=== PATIENT | male | born 1990 | race Caucasian/White ===

== ENCOUNTER 2018-03-23 21:28 | Observation (INO) ==
[2018-03-23] MEDS ORDERED: Ondansetron 4 MG/2 ML VIAL IVP ONE (22:05)
[2018-03-23] MEDS ORDERED: 0.9 % Sodium Chloride 1,000 ML IVC ONE (22:05)
--- NOTE | 2018-03-23 22:14 | Emergency Department Note ---
Disposition Clinical Impression: Acute hepatitis Disposition: Admitted As Inpatient Condition: Fair Referrals: NONE,PCP [Primary Care Provider] - Forms: ED Satisfaction Letter, Work/School Release Time of Disposition: 23:31 General Adult HPI - General Chief complaint: ED General Medical Stated complaint: pnemonia symptoms increased Time Seen by Provider: 03/23/18 21:55 Source: patient, family Mode of arrival: private vehicle Limitations: no limitations Nursing Notes Reviewed: Yes Vital Signs Reviewed: Yes - History of Present Illness HPI Narrative: Patient presents to the emergency part stating that Saturday he was seen at an [facility] facility for cough and vomiting and not feeling well. He says they did not x-ray and told him that he had pneumonia and a partially collapsed lung. They sent him out on antibiotics and Mucinex. He did not get the medications filled because he said he did not have the money to do it. He has continued to have vomiting and inability to eat and he still feels a little short of breath and is coughing. He rates his symptoms as severe. He notes no symptoms get worse with eating or drinking. He notes no alleviating factors. He has had no associated fever and no associated diarrhea at this point. He does complain of dark urine. Pt Subjective Complaint: Worsening pneumonia, vomiting Pain Scale: 2 Treatments Prior to Arrival: other (Seen at outside facility.) - Related Data Allergies Allergy/AdvReac Type Severity Reaction Status Date / Time No Known Allergies Allergy Verified 03/10/18 00:34 All systems ED: reviewed and negative except as stated. Constitutional: Reports: fever, chills ENT ED: Denies: ear pain, throat pain, congestion Cardiovascular: Denies: chest pain, palpitations Respiratory: Reports: cough, dyspnea Gastrointestinal: Reports: abdominal pain, nausea, vomiting. Denies: diarrhea Genitourinary: Reports: dysuria, other (Dark colored urine) Integumentary: Denies: rash Neurological: Reports: weakness (Generalized) Past Medical History - Past Medical History Attestation: Yes The following information was validated with the patient. Source: patient, old records reviewed, obtained from family, nursing notes reviewed Medical history: Reports: diabetes, hypertension, other Psychiatric history: Reports: depression - Social History Smoking Status: Current every day smoker Smokeless Tobacco Status: No Alcohol use: Reports: rarely Drug use: Reports: none Physical Exam - General Limitations: no limitations General appearance: alert, in no apparent distress - Head Head exam: atraumatic, normocephalic, normal inspection - Eye Eye exam: Present: normal appearance, PERRL, EOMI. Absent: scleral icterus, conjunctival injection - ENT ENT exam: normal exam, normal oropharynx, mucous membranes moist, normal external ear exam - Neck Neck exam: Present: normal inspection, full ROM, trachea midline. Absent: meni ngismus - Chest Chest inspection: Present: normal inspection, symmetric chest wall rise. Absent: tenderness - Respiratory Respiratory exam: Present: normal lung sounds bilaterally. Absent: respiratory distress, wheezes - Cardiovascular Cardiovascular exam: Present: normal rhythm, tachycardia, normal heart sounds - Abdominal Exam Abdominal exam: Present: soft, Non-Tender, normal bowel sounds - Extremities Exam Extremities exam: Present: normal inspection. Absent: pedal edema - Neurological Exam Neurological exam: Present: alert, oriented X3 - Psychiatric Psychiatric exam: Present: normal affect, normal mood - Skin Skin exam: Present: warm, dry. Absent: rash Course Course Narrative: Patient presented with concern of worsening pneumonia. Symptoms include vomiting with some cough but sounds more like a vomiting issue without diarrhea. He is also talking about his urine being brown. I do not hear anything on his lungs and his vital signs are good and his oxygen level is good. I started to doubt the pneumonia story. I am going to repeat the chest x-ray to be sure. I however am going to do a hepatitis workup on the patient because of his story of dark brown urine and vomiting. He reports having a history of substance use in the past but has never been diagnosed with any type of hepatitis. He does not relate any recent dramatic intake of Tylenol or other hepatic injuring substances. - Reevaluation(s) Reevaluation #1: Labs came back showing definitely hepatitis with elevated AST and ALTs. The bilirubin is 9. PT is 17.5 although the INR is only 1.5. Coupling the elevated PT with the nausea and vomiting that is persistent, I think the patient needs to be admitted to the hospital. I ordered an acute hepatitis panel but that is not coming back this evening. I discussed the case with the hospitalist, Dr. Hirsch, and he gave orders to admit the patient to the hospital. Time: 23:30 - Consultations Consultation #1: Dr. Hirsch, hospitalist - I discussed the case with the hospitalist and he is accepting the patient for admission. Time: 23:25 Vital Signs Temperature 98.8 F 03/23/18 21:30 Pulse Rate 102 03/23/18 21:30 Respiratory Rate 16 03/23/18 21:30 Blood Pressure 133/90 03/23/18 21:30 O2 Sat by Pulse Oximetry 93 03/23/18 21:30 Temperature 98.8 F 03/23/18 21:30 Pulse Rate 102 03/23/18 21:30 Respiratory Rate 16 03/23/18 21:30 Blood Pressure 133/90 03/23/18 21:30 O2 Sat by Pulse Oximetry 93 03/23/18 21:30 Oxygen Delivery Oxygen Delivery Room Air Medical Decision Making - Medical Records Medical records reviewed: Yes I reviewed the patient's medical records. - Lab Data Lab results reviewed: Yes I reviewed the patient's lab results. Result diagrams: 03/23/18 22:19 03/23/18 22:19 Lab Results 03/23/18 03/23/18 03/23/18 Range/Units 22:13 22:19 22:19 WBC 7.8 (4.3-11.1) K/mcL RBC 5.53 H (4.19-5.50) M/mcL Hgb 16.4 (12.9-16.9) g/dL Hct 45.5 (37.5-50.1) % MCV 82.3 L (83.0-100.0) fL MCH 29.7 (28.0-33.3) pg MCHC 36.0 H (31.6-35.5) g/dL RDW 13.4 (11.5-14.5) % Plt Count 245 (140-400) K/mcL MPV 11.2 (9.4-12.4) fL Seg Neutrophils % 50.0 % Band Neutrophils % 4.0 (0-4) % Lymphocytes % 40.0 % Monocytes % 4.0 % Eosinophils % 2.0 % Neutrophils # 4.2 (1.6-8.9) K/mcL Lymphocytes # 3.1 (0.6-4.6) K/mcL Monocytes # 0.3 (0.0-1.3) K/mcL Eosinophils # 0.2 (0.0-0.6) K/mcL Reactive Lymphocytes Present A (Not Present) Smudge Cells Present A (Not Present) Platelet Estimate Normal (Normal) Large Platelets Present A (Not Present) PT 17.0 H (9.4-12.1) Seconds INR 1.5 APTT 47.0 H (26.0-36.0) Seconds Sodium (136-145) mEq/L Potassium (3.5-5.1) mEq/L Chloride (98-107) mEq/L Carbon Dioxide (23-29) mEq/L BUN (6-20) mg/dL Creatinine (0.70-1.30) mg/dL Est GFR ( Amer) (> 60) Est GFR (Non-Af Amer) (> 60) BUN/Creatinine Ratio (6-26) Glucose (70-105) mg/dL Calculated Osmolality (280-300) Calcium (8.6-10.3) mg/dL Total Bilirubin (0.3-1.0) mg/dL Direct Bilirubin (0.0-0.2) mg/dL Indirect Bilirubin (0.0-1.2) mg/dL AST (13-39) Units/L ALT (7-52) Units/L Alkaline Phosphatase (34-104) Units/L Serum Total Protein (6.4-8.9) g/dL Albumin (3.5-5.7) g/dL Globulin (2.4-3.5) g/dL Albumin/Globulin Ratio (1.1-2.2) Urine Color Odalis A (Yellow) Urine Clarity Slightly Cloudy A (Clear) Urine pH 6.0 (5.0-8.0) pH Units Ur Specific [place] 1.020 (1.010-1.025) Urine Protein 30 H (Neg-Trace) mg/dL Urine Glucose (UA) Normal (Normal) mg/dL Urine Ketones Trace H (Negative) mg/dL Urine Blood Negative (Negative) Urine Nitrite Negative (Negative) Urine Bilirubin Large H (Negative) Urine Urobilinogen Normal (Normal) mg/dL Ur Leukocyte Esterase Negative (Negative) Urine Microscopic RBC 0-3 (0-3) per hpf Urine Microscopic WBC 0-3 (0-3) per hpf Ur Squamous Epith Cells Few (None-Few) per lpf Ur Transition Epith Cell Few (None-Few) per hpf Ur Renal Epithelial Cell Many H (None-Few) per hpf Urine Bacteria Moderate H (None-Few) per hpf Epithelial Casts See Below (None Seen) per lpf Hyaline Casts Few (None-Few) per lpf Granular Casts Few H (None Seen) per lpf Urine Mucus Moderate H (Few) Ur Culture Indicated? NO (NO) 03/23/18 Range/Units 22:19 WBC (4.3-11.1) K/mcL RBC (4.19-5.50) M/mcL Hgb (12.9-16.9) g/dL Hct (37.5-50.1) % MCV (83.0-100.0) fL MCH (28.0-33.3) pg MCHC (31.6-35.5) g/dL RDW (11.5-14.5) % Plt Count (140-400) K/mcL MPV (9.4-12.4) fL Seg Neutrophils % % Band Neutrophils % (0-4) % Lymphocytes % % Monocytes % % Eosinophils % % Neutrophils # (1.6-8.9) K/mcL Lymphocytes # (0.6-4.6) K/mcL Monocytes # (0.0-1.3) K/mcL Eosinophils # (0.0-0.6) K/mcL Reactive Lymphocytes (Not Present) Smudge Cells (Not Present) Platelet Estimate (Normal) Large Platelets (Not Present) PT (9.4-12.1) Seconds INR APTT (26.0-36.0) Seconds Sodium 129 L (136-145) mEq/L Potassium 3.6 (3.5-5.1) mEq/L Chloride 96 L (98-107) mEq/L Carbon Dioxide 23 (23-29) mEq/L BUN 9 (6-20) mg/dL Creatinine 0.83 (0.70-1.30) mg/dL Est GFR ( Amer) > 60 (> 60) Est GFR (Non-Af Amer) > 60 (> 60) BUN/Creatinine Ratio 11 (6-26) Glucose 184 H (70-105) mg/dL Calculated Osmolality 271 L (280-300) Calcium 8.9 (8.6-10.3) mg/dL Total Bilirubin 9.6 H (0.3-1.0) mg/dL Direct Bilirubin 5.2 H (0.0-0.2) mg/dL Indirect Bilirubin 4.4 H (0.0-1.2) mg/dL AST 1777 H (13-39) Units/L ALT > 500 H (7-52) Units/L Alkaline Phosphatase 318 H (34-104) Units/L Serum Total Protein 8.0 (6.4-8.9) g/dL Albumin 3.7 (3.5-5.7) g/dL Globulin 4.3 H (2.4-3.5) g/dL Albumin/Globulin Ratio 0.9 L (1.1-2.2) Urine Color (Yellow) Urine Clarity (Clear) Urine pH (5.0-8.0) pH Units Ur Specific [place] (1.010-1.025) Urine Protein (Neg-Trace) mg/dL Urine Glucose (UA) (Normal) mg/dL Urine Ketones (Negative) mg/dL Urine Blood (Negative) Urine Nitrite (Negative) Urine Bilirubin (Negative) Urine Urobilinogen (Normal) mg/dL Ur Leukocyte Esterase (Negative) Urine Microscopic RBC (0-3) per hpf Urine Microscopic WBC (0-3) per hpf Ur Squamous Epith Cells (None-Few) per lpf Ur Transition Epith Cell (None-Few) per hpf Ur Renal Epithelial Cell (None-Few) per hpf Urine Bacteria (None-Few) per hpf Epithelial Casts (None Seen) per lpf Hyaline Casts (None-Few) per lpf Granular Casts (None Seen) per lpf Urine Mucus (Few) Ur Culture Indicated? (NO) - Radiology Data Radiology results reviewed: Yes I reviewed the patient's radiology results.
[2018-03-23 22:18] LABS: Bilirubin,Urine Large (Negative); Blood,Urine Negative (Negative); Clarity,Urine Slightly Cloudy (Clear); Ketones,Urine Trace mg/dL (Negative); Leukocyte Esterase,Urine Negative (Negative); Nitrite,Urine Negative (Negative); Protein,Urine 30 mg/dL (Neg-Trace); Urobilinogen,Urine Normal (Normal)
[2018-03-23 22:28] LABS: Hematocrit 45.5 % (37.5-50.1); Hemoglobin 16.4 g/dL (12.9-16.9); Mean Corpuscular Hemoglobin 29.7 pg (28.0-33.3); Mean Corpuscular Volume 82.3 fL (83.0-100.0); Mean Platelet Volume 11.2 fL (9.4-12.4); Platelet Count 245 K/mcL (140-400); Red Blood Count 5.53 M/mcL (4.19-5.50); Red Cell Distribution Width 13.4 % (11.5-14.5)
[2018-03-23 22:28] LABS: Glucose,Urine (UA) Normal (Normal)
[2018-03-23 22:30] LABS: Color,Urine Amber (Yellow)
[2018-03-23 22:38] LABS: INR 1.5
[2018-03-23 22:38] LABS: Hyaline Casts,Urine Few per lpf (None-Few); Squamous Epithelial Cell,Urine Few per lpf (None-Few)
[2018-03-23 22:39] LABS: Bacteria,Urine Moderate per hpf (None-Few); Mucus,Urine Moderate (Few); RBC,Urine 0-3 per hpf (0-3)
[2018-03-23 22:40] LABS: Granular Casts,Urine Few per lpf (None Seen)
[2018-03-23 23:02] LABS: Renal Epithelial Cells,Urine Many per hpf (None-Few); Transitional Epi Cells,Urine Few per hpf (None-Few); WBC,Urine 0-3 per hpf (0-3)
[2018-03-23 23:04] LABS: Alanine Aminotransferase > 500 Units/L (7-52); Albumin 3.7 g/dL (3.5-5.7); Albumin/Globulin Ratio 0.9 (1.1-2.2); Alkaline Phosphatase 318 Units/L (34-104); Aspartate Amino Transferase 1777 Units/L (13-39); BUN/Creatinine Ratio 11 (6-26); Bilirubin,Direct 5.2 mg/dL (0.0-0.2); Bilirubin,Indirect 4.4 mg/dL (0.0-1.2); Bilirubin,Total 9.6 mg/dL (0.3-1.0); Blood Urea Nitrogen 9 mg/dL (6-20); Calcium 8.9 mg/dL (8.6-10.3); Carbon Dioxide 23 mEq/L (23-29); Chloride 96 mEq/L (98-107); Globulin 4.3 g/dL (2.4-3.5); Glucose 184 mg/dL (70-105); Osmolality,Calculated 271 (280-300); Potassium 3.6 mEq/L (3.5-5.1); Sodium 129 mEq/L (136-145); eGFR For Non-African Americans > 60 (> 60)
[2018-03-23 23:25] LABS: Eosinophils # 0.2 K/mcL (0.0-0.6); Large Platelets Present (Not Present); Lymphocytes # 3.1 K/mcL (0.6-4.6); Monocytes # 0.3 K/mcL (0.0-1.3); Neutrophils # 4.2 K/mcL (1.6-8.9); Reactive Lymphocytes Present (Not Present)
[2018-03-23 23:26] LABS: Platelet Estimate Normal (Normal); Smudge Cells Present (Not Present)
[2018-03-24] MEDS ORDERED: Naloxone 0.4 MG/ML INJ IVP PRN (00:20)
[2018-03-24] MEDS ORDERED: Ondansetron 4 MG/2 ML VIAL IVP SCH (00:20)
[2018-03-24] MEDS: 0.9 % Sodium Chloride 1,000 ML IVC SCH ×2 (00:38→08:13)
[2018-03-24] MEDS ORDERED: Ondansetron 4 MG/2 ML VIAL ONE (03:15)
[2018-03-24 09:29] LABS: Hepatitis B Core IgM Nonreactive (Nonreactive); Hepatitis B Surface Antigen Nonreactive (Nonreactive)
[2018-03-24 09:43] LABS: Hepatitis A Antibody IgM Reactive (Nonreactive)
[2018-03-24 09:44] LABS: Hepatitis C Virus Antibody Reactive (Nonreactive)
--- NOTE | 2018-03-24 12:26 | Internal Med History&Physical ---
Date of Encounter: 03/24/18 Time of Encounter: 11:45 Assessment and Plan (1) Acute hepatitis Current visit: Yes Status: Acute Labs show hepatitis A IgM antibody and hepatitis C antibody reactive. Hepatitis C genotype and viral load quantification will be ordered. CT of the abdomen will be done to further evaluate. IV fluids have been started and anti-emetics will be given as needed Internal Medicine - H&P: HPI Chief complaint: Vomiting, hepatitis Admitted From: Emergency Dept Plans for Post Hospital Care: Home History of present illness: Mr. Del Cid is a 27 year old male who came to emergency room stating he had onset of vomiting approximately 0600. There was slight abdominal pain present. He reports multiple episodes of vomiting but no visible hematemesis. He denies diarrhea. He came to emergency room after several hours and was evaluated and found to have significantly elevated LFTs. He was admitted to [facility] floor for ongoing care needs. He states he was at [facility] emergency room on March 18 for flulike symptoms. He reports he was told he had pneumonia and a partially collapsed lung. He was not admitted to the hospital but states he was prescribed antibiotics, Mucinex, inhalers, and ibuprofen. He did not fill any of these prescriptions because he has no job and no money. Labs drawn at [facility] emergency room last evening have now returned showing hepatitis A and C antibodies present. Hepatitis B testing was negative. He states his father, mother and brother have all had hepatitis for years but he does not know any details. He reports his last IV drug use was approximately 3- 1/2 months ago. He is sexually active with his fiancee and reports she has no diagnosis or symptoms of hepatitis. He states he consumes alcohol occasionally. He denies other document disorders of his liver gallbladder or exocrine pancreas. Past Med Surg Social Fam HX - Past Medical History Medical history: diabetes, hypertension, other Additional medical history: spinal miningitsis, cystic acne Psychiatric history: depression - Past Surgical History Additional surgical history: removal of cystic acne - Social History Smoking Status: Current every day smoker Smokeless Tobacco Status: No Alcohol use: rarely Drug use: none Internal Medicine - H&P: Meds Allergy/AdvReac Type Severity Reaction Status Date / Time No Known Allergies Allergy Verified 03/10/18 00:34 All Systems PM: A 10-system review of systems was performed and is negative for pertinent findings except as documented above in the HPI. Review of systems: Gen.: He states his weight has been stable the past year. He weighed approximately 400 pounds several years ago but intentionally lost weight after he was diagnosed with diabetes. Cardiovascular: He denies hypertension OR heart failure angina DVT or pulmonary embolus. Respiratory: He has smoked since age 13 up to 3 packs per day. He has a diagnosis of asthma. He does not use home oxygen and has not been tested for sleep apnea. GI: As per history of present illness : He denies hematuria dysuria or kidney stones Neurologic: He denies large distribution strokes or seizures. Endocrine: He was diagnosed with DM 2 approximately 4 years ago. He states he lost weight and the diabetes required no further treatment. He denies thyroid disease or hyperlipidemia. Hematology/oncology: He denies blood disorders cancers or anemia Psychiatric: He has feelings of depression at times but does not take medication. He denies other mental health diagnoses. Mus[place] skeletal: He has occasional pain in his right wrist and hand and thinks he may have arthritis in both knees. He denies gout or other bone joint or muscle disorders. - Constitutional Vitals: Temp Pulse Resp BP Pulse Ox 99.8 F H 87 15 111/67 93 03/24/18 10:49 03/24/18 10:49 03/24/18 10:49 03/24/18 10:49 03/24/18 10:49 Exam: Gen.: He is a well-developed obese male lying in bed who appears in no severe distress at present time while at rest. HEENT: Head is atraumatic and normal cephalic. Eyes: EOMI. There is slight scleral icterus bilaterally. Mouth: Mucosa is moist. Neck: Supple and nontender. There is no thyromegaly or adenopathy noted. Heart: Regular without murmurs gallops or ectopics. Lungs: No wheezes or crackles are heard. Abdomen: Soft and nontender. No masses or guarding are noted. Extremities: There is no cyanosis edema or clubbing noted. Dorsalis pedis and posterior tibial pulses are 1-2 over 2 bilaterally. Neurologic: Mental status: He is talkative and a good historian. Cranial nerves: Smile is symmetric. Forehead wrinkles bilaterally. Tongue protrudes midline. EOMI. Motor: There is no pronator drift. Cerebellar: Finger to nose is intact bilaterally. Skin: Warm and dry Internal Med - H&P Results - Labs CBC & Chem 7: 03/23/18 22:19 03/23/18 22:19 Labs: Short CBC 03/23/18 Range/Units 22:19 WBC 7.8 (4.3-11.1) K/mcL Hgb 16.4 (12.9-16.9) g/dL Hct 45.5 (37.5-50.1) % Plt Count 245 (140-400) K/mcL Neutrophils # 4.2 (1.6-8.9) K/mcL BMP 03/23/18 22:19 Sodium 129 L Potassium 3.6 Chloride 96 L Carbon Dioxide 23 BUN 9 Creatinine 0.83 Glucose 184 H Calcium 8.9 Liver Function 03/23/18 Range/Units 22:19 Total Bilirubin 9.6 H (0.3-1.0) mg/dL Direct Bilirubin 5.2 H (0.0-0.2) mg/dL AST 1777 H (13-39) Units/L ALT > 500 H (7-52) Units/L Alkaline Phosphatase 318 H (34-104) Units/L Albumin 3.7 (3.5-5.7) g/dL Urine 03/23/18 Range/Units 22:13 Urine Color Odalis A (Yellow) Urine Clarity Slightly Cloudy A (Clear) Urine pH 6.0 (5.0-8.0) pH Units Ur Specific [place] 1.020 (1.010-1.025) Urine Protein 30 H (Neg-Trace) mg/dL Urine Glucose (UA) Normal (Normal) mg/dL - Impressions ITS Impressions Chest X-Ray 03/23/18 22:05 IMPRESSION: No acute pulmonary process. D/ / Jesus Garcia / Jesus Garcia Interpreting Provider: Jesus Garcia
[2018-03-24] MEDS: 0.9 % Sodium Chloride w KCl 20 MEQ/1,000 ML MLS IVC SCH (13:30)
[2018-03-24] MEDS: Piperacillin/Tazobactam 3.375 GM in 0.9 % Sodium Chloride Mini Bag 100 ML IVPB SCH ×2 (16:20→23:47)
[2018-03-24] MEDS: traMADol 50 MG TABLET PO PRN (17:02)
[2018-03-24] MEDS: Lactobacillus 1 EACH CAP.SPRINK PO SCH (21:38)
[2018-03-24] MEDS: Ondansetron 4 MG/2 ML VIAL IVP PRN (23:46)
[2018-03-25 04:58] LABS: Mean Corpuscular Hemoglobin 29.5 pg (28.0-33.3); Mean Corpuscular Volume 84.2 fL (83.0-100.0); Mean Platelet Volume 11.3 fL (9.4-12.4); Platelet Count 230 K/mcL (140-400); Red Blood Count 4.75 M/mcL (4.19-5.50); Red Cell Distribution Width 14.7 % (11.5-14.5)
[2018-03-25 05:05] LABS: INR 1.5; Prothrombin Time 16.7 Seconds (9.4-12.1)
[2018-03-25 05:14] LABS: Anisocytosis 1+ (Not Present); Lymphocytes # 2.3 K/mcL (0.6-4.6); Monocytes # 0.3 K/mcL (0.0-1.3); Neutrophils # 2.7 K/mcL (1.6-8.9)
[2018-03-25 05:15] LABS: Large Platelets Present (Not Present); Platelet Estimate Normal (Normal); Reactive Lymphocytes Present (Not Present); Smudge Cells Present (Not Present); Toxic Vacuolation Present (Not Present)
[2018-03-25 05:16] LABS: Polychromasia 1+ (Not Present)
[2018-03-25 05:20] LABS: Alanine Aminotransferase > 500 Units/L (7-52); Albumin 2.8 g/dL (3.5-5.7); Albumin/Globulin Ratio 0.8 (1.1-2.2); Alkaline Phosphatase 261 Units/L (34-104); Aspartate Amino Transferase 930 Units/L (13-39); BUN/Creatinine Ratio 7 (6-26); Bilirubin,Total 9.2 mg/dL (0.3-1.0); Blood Urea Nitrogen 5 mg/dL (6-20); Calcium 7.9 mg/dL (8.6-10.3); Carbon Dioxide 25 mEq/L (23-29); Chloride 101 mEq/L (98-107); Chol/HDL Ratio 67.3 (0-4.9); Cholesterol 202 mg/dL (< 200); Globulin 3.4 g/dL (2.4-3.5); Glucose 120 mg/dL (70-105); HDL Cholesterol 3 mg/dL (40-59); LDL Cholesterol,Calculated 136 mg/dL (0-99); Magnesium 1.8 mg/dL (1.6-2.6); Osmolality,Calculated 272 (280-300); Potassium 3.5 mEq/L (3.5-5.1); Sodium 132 mEq/L (136-145); Total Protein 6.2 g/dL (6.4-8.9); Triglycerides 316 mg/dL (< 150); eGFR For Non-African Americans > 60 (> 60)
[2018-03-25 05:22] LABS: Toxic Granulation Present (Not Present)
[2018-03-25 07:03] LABS: Thyroid Stimulating Hormone 1.278 mcIU/mL (0.340-5.600)
[2018-03-25 07:24] VITALS: BP 110/65
[2018-03-25 09:09] LABS: Estimated Average Glucose 186 mg/dl; Hemoglobin A1C 8.1 %
[2018-03-25] MEDS: Ondansetron 4 MG/2 ML VIAL IVP PRN (09:32)
[2018-03-25] MEDS: Piperacillin/Tazobactam 3.375 GM in 0.9 % Sodium Chloride Mini Bag 100 ML IVPB SCH (09:33)
[2018-03-25] MEDS: Lactobacillus 1 EACH CAP.SPRINK PO SCH (09:35)
[2018-03-25] MEDS: traMADol 50 MG TABLET PO PRN (09:36)
[2018-03-25] MEDS: 0.9 % Sodium Chloride w KCl 20 MEQ/1,000 ML MLS IVC SCH ×2 (09:36→10:03)
--- NOTE | 2018-03-25 10:03 | Internal Med Progress Note ---
Date of Encounter: 03/25/18 Time of Encounter: 09:55 - Assessment and plan (1) Acute hepatitis Current Visit: Yes Status: Acute Assessment and plan: March 25. Continue IV fluids and monitor labs. (2) Cholecystitis Current Visit: Yes Status: Acute Assessment and plan: March 25. CT showed cholelithiasis with ill-defined gallbladder wall and mild to moderate surrounding fat stranding consistent with acute cholecystitis. Continue IV antibiotics and IV fluids. He will need referral to surgery. (3) Low serum HDL Current Visit: Yes Status: Acute Assessment and plan: March 25. Lipid profile showed total cholesterol 202, triglycerides 216, LDL 136, HDL 3, and total/HDL ratio 67.3. He does not know family history and does not recall being tested previously for lipid profile. - Subjective Interval history: March 25. He has no new complaints. He still has right upper quadrant a bdominal pain. She denies vomiting since I saw him yesterday. - Constitutional Vitals: Temp Pulse Resp BP Pulse Ox 99.1 F 78 16 110/65 93 03/25/18 07:23 03/25/18 07:23 03/25/18 07:23 03/25/18 07:23 03/25/18 07:23 Exam: He is lying in bed and appears in mild discomfort at rest. 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 I reviewed his medications and lab results. I reviewed his CT scan report. Internal Medicine: Result - Labs CBC & Chem 7: 03/25/18 04:20 03/25/18 04:20 Labs: Short CBC 03/25/18 Range/Units 04:20 WBC 5.4 (4.3-11.1) K/mcL Hgb 14.0 D (12.9-16.9) g/dL Hct 40.0 (37.5-50.1) % Plt Count 230 (140-400) K/mcL Neutrophils # 2.7 (1.6-8.9) K/mcL BMP 03/25/18 04:20 Sodium 132 L Potassium 3.5 Chloride 101 Carbon Dioxide 25 BUN 5 L Creatinine 0.69 L Glucose 120 H Calcium 7.9 L Liver Function 03/25/18 Range/Units 04:20 Total Bilirubin 9.2 H (0.3-1.0) mg/dL AST 930 H (13-39) Units/L ALT > 500 H (7-52) Units/L Alkaline Phosphatase 261 H (34-104) Units/L Albumin 2.8 L (3.5-5.7) g/dL - ABG Interpretation ABG results: PT/INR, D-dimer PT 16.7 Seconds (9.4-12.1) H 03/25/18 04:20 - Impressions Impressions Abdomen/Pelvis CT 03/24/18 12:15 IMPRESSION: Acute cholecystitis without evidence of perforation or bile duct dilatation to suggest choledocholithiasis. Hepatosplenomegaly with hepatic steatosis. Yanna hepatis lymphadenopathy, presumably reactive (relating to acute cholecystitis and/or hepatocellular disease). D/ / Raj Tellez / Raj Tellez Interpreting Provider: Raj Tellez Consult Discharge Plan - Plan
--- NOTE | 2018-03-25 10:55 | Discharge Summary ---
Orders not resulted at time of discharge: Pending orders 03/24/18 14:54 Hepatitis C Qnt Reflx Genotype Routine Date of Encounter: 03/25/18 Time of Encounter: 10:45 - Discharge Diagnosis (1) Acute hepatitis Priority: Primary Status: Acute (2) Cholecystitis Priority: Secondary Status: Acute (3) Low serum HDL Priority: Secondary Status: Acute Hospital course: Mr. Del Cid is a 27 year old male who came to emergency room stating he had onset of vomiting approximately 0600. There was slight abdominal pain present. He reports multiple episodes of vomiting but no visible hematemesis. He denies diarrhea. He came to emergency room after several hours and was evaluated and found to have significantly elevated LFTs. He was admitted to [facility] floor for ongoing care needs. Initial orders were written by the emergency room physician. I saw him on March 24 and performed a history and physical. Labs showed hepatitis A IgM antibody and hepatitis C antibody reactive. Hepatitis C genotype and viral load quantification were ordered with results pending at time of transfer. CT of abdomen was done to further evaluate. CT showed acute cholecystitis without evidence of perforation or bowel dilatation. Cholelithiasis was identified in the gallbladder. He was started on IV Zosyn. IV fluids were continued. Follow-up on March 25 showed persistent right upper quadrant tenderness. WBC remained normal and there was no left shift on differential. LFTs had improved with AST 930, total bilirubin 9.2, and alkaline phosphatase 261. I felt he should be evaluated by surgical service. Contact was made with [facility] and he was accepted in transfer the morning of March 25. Lipid profile showed significant abnormalities which can be addressed by caregivers at [facility] and/or PCP. - Time Spent with Patient Total time spent providing and/or coordinating discharge services: - Discharge Medications Allergies/Adverse Reactions: Allergy/AdvReac Type Severity Reaction Status Date / Time No Known Allergies Allergy Verified 03/10/18 00:34 Date of admission: 03/23/18 23:42 Primary care physician: PCP NONE - Constitutional Vitals: Temp Pulse Resp BP Pulse Ox 99.1 F 78 16 110/65 93 03/25/18 07:23 03/25/18 07:23 03/25/18 07:23 03/25/18 07:23 03/25/18 07:23 - Patient Status Disposition: Transfer Other Condition: Fair - Discharge Instructions
[2018-03-28 09:57] LABS: HCV Quant Interpretation NOT DETECTED (Not Detected); HCV Quant Log NOT DETECTED log IU/mL
== END 2018-03-25 12:05 | disposition other institution (70) ==
LOC: INPPIK 21:28 → EMEROOPIK 21:28 → INPPIK 03-24 00:08
PROVIDERS: ADMIT Internal Medicine; ATTEND Internal Medicine